=== PATIENT | male | born 1960 | race Caucasian/White ===

== ENCOUNTER → 2019-11-27 07:56 | Outpatient (BNVA) | payer MEDICARE, MEDICAID, SELFPAY | PROVIDERS: Family Provider Family Medicine; PCP Family Medicine; Visit Provider Nurse Practitioner Psychiatric/Mental Health | DX: F34.1 Dysthymic disorder (principal); F43.12 Post-traumatic stress disorder, chronic; F70 Mild intellectual disabilities; F17.220 Nicotine dependence, chewing tobacco, uncomplicated; F33.41 Major depressive disorder, recurrent, in partial remission; F41.8 Other specified anxiety disorders | CPT/HCPCS: 99213 ==

== ENCOUNTER → 2020-02-26 07:48 | Outpatient (BNVA) | payer MEDICARE, MEDICAID, SELFPAY | PROVIDERS: Family Provider Family Medicine; PCP Family Medicine; Visit Provider Nurse Practitioner Psychiatric/Mental Health | DX: F34.1 Dysthymic disorder (principal); F43.12 Post-traumatic stress disorder, chronic; F70 Mild intellectual disabilities; F17.220 Nicotine dependence, chewing tobacco, uncomplicated | CPT/HCPCS: 99213 ==

== ENCOUNTER → 2020-05-27 08:01 | Outpatient (BNVA) | payer MEDICARE, MEDICAID, SELFPAY | PROVIDERS: Family Provider Family Medicine; PCP Family Medicine; Visit Provider Nurse Practitioner Psychiatric/Mental Health | DX: F34.1 Dysthymic disorder (principal); F43.12 Post-traumatic stress disorder, chronic; F70 Mild intellectual disabilities; F17.220 Nicotine dependence, chewing tobacco, uncomplicated | CPT/HCPCS: 99213 ==

== ENCOUNTER → 2020-06-03 10:00 | Outpatient (BNVA) | payer MEDICARE, MEDICAID, SELFPAY | PROVIDERS: Family Provider Family Medicine; PCP Family Medicine; Visit Provider Nurse Practitioner Family | DX: I10 Essential (primary) hypertension (principal); E11.65 Type 2 diabetes mellitus with hyperglycemia; E55.9 Vitamin D deficiency, unspecified; Z13.6 Encounter for screening for cardiovascular disorders; Z11.1 Encounter for screening for respiratory tuberculosis | CPT/HCPCS: 80053; 80061; 81003; 82306; 83036; 84443; 85025 ==

== ENCOUNTER 2020-06-10 12:13 | Outpatient (CLI) | payer MEDICARE, MEDICAID, SELFPAY ==
--- NOTE | 2020-06-10 12:29 | USCV_ITS ---
Kit Schuler Age: 60 Gender: M : 1960 Exam Date: 06/10/2020 12:48 Ordering Phys: Matias Prabhakar MD ([email or web address]) Technologist: Marry Perez [place] [facility] [place]: [place] pain BP: / HR: 54 Rhythm: Sinus Technical Quality: Adequate MEASUREMENTS (Male / Female) Normal Values 2D ECHO LV Diastolic Diameter PLAX 4.9 cm 4.2 - 5.9 / 3.9 - 5.3 cm LV Systolic Diameter PLAX 3.0 cm IVS Diastolic Thickness 1.3 cm 0.6 - 1.0 / 0.6 - 0.9 cm IVS Systolic Thickness 2.4 cm LVPW Diastolic Thickness 1.5 cm 0.6 - 1.0 / 0.6 - 0.9 cm LVPW Systolic Thickness 1.9 cm LVOT Diameter 2.1 cm LV Ejection Fraction 2D Teich 69.8 % LV Ejection Fraction MOD 2C 59.2 % LV Ejection Fraction 2C AL 62.0 % LA Diameter 4.5 cm LA Width 3.2 cm LA Height 4.2 cm RA Width 2.7 cm RA Height 3.9 cm Aorta at Sinotubular Diameter 3.8 cm M-MODE LV Diastolic Diameter MM 5.0 cm 4.2 - 5.9 / 3.9 - 5.3 cm LV Systolic Diameter MM 3.3 cm LV Ejection Fraction MM Teich 62.0 % IVS Diastolic Thickness MM 1.7 cm 0.6 - 1.0 / 0.6 - 0.9 cm IVS Systolic Thickness MM 2.2 cm LVPW Diastolic Thickness MM 1.3 cm 0.6 - 1.0 / 0.6 - 0.9 cm LVPW Systolic Thickness MM 2.1 cm RV Diastolic Diameter MM 1.7 cm Aortic Annulus Diameter 3.8 cm LA Ao Ratio MM 1.2 MV E Point Septal Separation 0.5 cm DOPPLER AV Peak Velocity 123.7 cm/s LVOT Peak Velocity 62.3 cm/s AV Area Cont Eq vti 1.8 cm squared AV Area Cont Eq pk 1.7 cm squared MV Area PHT 2.4 cm squared Mitral E to A Ratio 1.1 MV E' Velocity 30.0 cm/s Mitral E to MV E' Ratio 6.5 Mitral E to LV E' Lateral Ratio 5.4 Mitral E to LV E' Septal Ratio 8.4 TR Peak Velocity 141.8 cm/s TR Peak Gradient 8.0 mmHg TR Mean Velocity 104.8 cm/s TR Mean Gradient 4.7 mmHg TR Velocity Time Integral 38.0 cm TV Peak E Velocity 66.0 cm/s Right Atrial Pressure 3.0 mmHg Pulmonary Artery Systolic Pressu 11.0 mmHg PV Peak Velocity 59.0 cm/s RV Acceleration Time 0.2 s RV Ejection Time 0.3 s RV AcT/ET 0.5 FINDINGS Left Ventricle Normal left ventricular size and systolic function, EF 59 %. Mild left ventricular hypertrophy. Slightly dyskinetic basal inferior wall segment Right Ventricle The right ventricle is normal in size and function. Right Atrium The right atrium is normal in size. Left Atrium Mildly dilated Mitral Valve Structurally normal mitral valve without significant stenosis or prolapse. There is no mitral regurgitation. Aortic Valve Thickened aortic valve. Tricuspid Valve Structurally normal tricuspid valve without significant stenosis or regurgitation. Pulmonary artery systolic pressure is normal. Pulmonic Valve Structurally normal pulmonic valve without significant stenosis. There is no pulmonic regurgitation. Pericardium No pericardial effusion. Aorta Normal aortic annulus size. CONCLUSIONS Normal left ventricular size and systolic function, EF 59 %. Mild left ventricular hypertrophy. Slightly dyskinetic basal inferior wall segment. Mild left atrial enlargement. Thickened aortic valve. There is no pericardial effusion. There are no intracardiac masses. No previous study is available for comparison. Dr Matias Prabhakar MD FAC (Electronically Signed) Final Date: 11 June 2020 00:10 S
== END 2020-06-10 12:14 | disposition home or self-care (01) ==
PROVIDERS: PCP Nurse Practitioner Family; Visit Provider Internal Medicine Cardiovascular Disease
DX: R07.89 Other chest pain (principal); I50.32 Chronic diastolic (congestive) heart failure; I35.8 Other nonrheumatic aortic valve disorders
CPT/HCPCS: 80048; 83880; 93306

== ENCOUNTER → 2020-07-20 09:59 | Outpatient (BNVA) | payer MEDICARE, MEDICAID, SELFPAY | PROVIDERS: PCP Nurse Practitioner Family; Visit Provider Nurse Practitioner Family | DX: E87.6 Hypokalemia (principal) | CPT/HCPCS: 80053 ==

== ENCOUNTER → 2020-08-10 10:13 | Outpatient (BNVA) | payer MEDICARE, MEDICAID, SELFPAY | PROVIDERS: PCP Nurse Practitioner Family; Visit Provider Nurse Practitioner Family | DX: M17.12 Unilateral primary osteoarthritis, left knee (principal) | CPT/HCPCS: 73562 ==

== ENCOUNTER → 2020-08-26 09:58 | Outpatient (BNVA) | payer MEDICARE, MEDICAID, SELFPAY | PROVIDERS: PCP Nurse Practitioner Family; Visit Provider Nurse Practitioner Psychiatric/Mental Health | DX: F34.1 Dysthymic disorder (principal); F43.12 Post-traumatic stress disorder, chronic; F70 Mild intellectual disabilities; F17.220 Nicotine dependence, chewing tobacco, uncomplicated | CPT/HCPCS: 99214 ==

== ENCOUNTER → 2020-09-30 08:20 | Outpatient (BNVA) | payer MEDICARE, MEDICAID, SELFPAY | PROVIDERS: PCP Nurse Practitioner Family; Visit Provider Nurse Practitioner Family | DX: E87.6 Hypokalemia (principal) | CPT/HCPCS: 80053 ==

== ENCOUNTER → 2020-11-02 10:43 | Outpatient (BNVA) | payer MEDICARE, MEDICAID, SELFPAY | PROVIDERS: PCP Nurse Practitioner Family; Visit Provider Nurse Practitioner Family | DX: S46.911A Strain of unspecified muscle, fascia and tendon at shoulder and upper arm level, right arm, initial encounter (principal); X58.XXXA Exposure to other specified factors, initial encounter; M19.011 Primary osteoarthritis, right shoulder | CPT/HCPCS: 73030 ==

== ENCOUNTER 2020-11-15 06:00 | Outpatient (RCR) | payer MEDICARE, MEDICAID, SELFPAY | END 2020-12-02 23:59 | disposition home or self-care (01) | LOC: WPT 06:00 | PROVIDERS: PCP Nurse Practitioner Family; Referring Provider Nurse Practitioner Family; Visit Provider Nurse Practitioner Family | DX: S46.911D Strain of unspecified muscle, fascia and tendon at shoulder and upper arm level, right arm, subsequent encounter (principal); W19.XXXD Unspecified fall, subsequent encounter; M25.569 Pain in unspecified knee; G89.29 Other chronic pain | CPT/HCPCS: 97110; 97112; 97163 ==

== ENCOUNTER → 2020-11-24 10:38 | Outpatient (BNVA) | payer MEDICARE, MEDICAID, SELFPAY | PROVIDERS: PCP Nurse Practitioner Family; Visit Provider Nurse Practitioner Family | DX: E87.6 Hypokalemia (principal); Z79.899 Other long term (current) drug therapy; E11.65 Type 2 diabetes mellitus with hyperglycemia | CPT/HCPCS: 80053 ==

== ENCOUNTER → 2020-12-02 08:47 | Outpatient (BNVA) | payer MEDICARE, MEDICAID, SELFPAY | PROVIDERS: PCP Nurse Practitioner Family; Visit Provider Nurse Practitioner Psychiatric/Mental Health | DX: F34.1 Dysthymic disorder (principal); F43.12 Post-traumatic stress disorder, chronic; F70 Mild intellectual disabilities; F17.220 Nicotine dependence, chewing tobacco, uncomplicated | CPT/HCPCS: 99214 ==

== ENCOUNTER 2020-12-03 06:00 | Outpatient (RCR) | payer MEDICARE, MEDICAID, SELFPAY | END 2021-01-02 23:59 | disposition home or self-care (01) | LOC: WPT 06:00 | PROVIDERS: PCP Nurse Practitioner Family; Referring Provider Nurse Practitioner Family; Visit Provider Nurse Practitioner Family | DX: S46.911D Strain of unspecified muscle, fascia and tendon at shoulder and upper arm level, right arm, subsequent encounter (principal); W19.XXXA Unspecified fall, initial encounter | CPT/HCPCS: 97110; 97112; 97164 ==

== ENCOUNTER → 2020-12-21 10:38 | Outpatient (BNVA) | payer MEDICARE, MEDICAID, SELFPAY | PROVIDERS: PCP Nurse Practitioner Family; Visit Provider Nurse Practitioner Family | DX: M16.0 Bilateral primary osteoarthritis of hip (principal); M54.5 Low back pain | CPT/HCPCS: 73523 ==

== ENCOUNTER 2021-01-03 06:00 | Outpatient (RCR) | payer MEDICARE, MEDICAID, SELFPAY | END 2021-02-01 23:59 | disposition home or self-care (01) | LOC: WPT 06:00 | PROVIDERS: PCP Nurse Practitioner Family; Referring Provider Nurse Practitioner Family; Visit Provider Nurse Practitioner Family | DX: S46.911D Strain of unspecified muscle, fascia and tendon at shoulder and upper arm level, right arm, subsequent encounter (principal); W19.XXXD Unspecified fall, subsequent encounter; M25.562 Pain in left knee; G89.29 Other chronic pain | CPT/HCPCS: 97110 ==

== ENCOUNTER → 2021-05-25 11:07 | Outpatient (BNVA) | payer MEDICARE, MEDICAID, SELFPAY | PROVIDERS: PCP Nurse Practitioner Family; Visit Provider Nurse Practitioner Family | DX: Z00.00 Encounter for general adult medical examination without abnormal findings (principal); I10 Essential (primary) hypertension; Z12.5 Encounter for screening for malignant neoplasm of prostate; Z13.6 Encounter for screening for cardiovascular disorders; E55.9 Vitamin D deficiency, unspecified; E11.65 Type 2 diabetes mellitus with hyperglycemia | CPT/HCPCS: 80053; 80061; 81003; 82306; 83036; 84443; 85025; G0103 ==

== ENCOUNTER → 2021-05-26 08:13 | Outpatient (BNVA) | payer MEDICARE, MEDICAID, SELFPAY | PROVIDERS: PCP Nurse Practitioner Family; Visit Provider Nurse Practitioner Psychiatric/Mental Health | DX: F34.1 Dysthymic disorder (principal); F43.12 Post-traumatic stress disorder, chronic; F70 Mild intellectual disabilities; F17.220 Nicotine dependence, chewing tobacco, uncomplicated | CPT/HCPCS: 99214 ==

== ENCOUNTER → 2021-09-01 08:19 | Outpatient (BNVA) | payer MEDICARE, MEDICAID, SELFPAY | PROVIDERS: PCP Nurse Practitioner Family; Visit Provider Nurse Practitioner Psychiatric/Mental Health | DX: F34.1 Dysthymic disorder (principal); F43.12 Post-traumatic stress disorder, chronic; F70 Mild intellectual disabilities; F17.220 Nicotine dependence, chewing tobacco, uncomplicated | CPT/HCPCS: 99214 ==

== ENCOUNTER → 2021-12-01 08:28 | Outpatient (BNVA) | payer MEDICARE, MEDICAID, SELFPAY | PROVIDERS: PCP Nurse Practitioner Family; Visit Provider Nurse Practitioner Psychiatric/Mental Health | DX: F34.1 Dysthymic disorder (principal); F43.12 Post-traumatic stress disorder, chronic; F70 Mild intellectual disabilities; F17.220 Nicotine dependence, chewing tobacco, uncomplicated | CPT/HCPCS: 99214 ==

== ENCOUNTER → 2021-12-14 11:25 | Outpatient (BNVA) | payer MEDICARE, MEDICAID, SELFPAY | PROVIDERS: PCP Nurse Practitioner Family; Visit Provider Nurse Practitioner | DX: Z12.5 Encounter for screening for malignant neoplasm of prostate (principal); M25.569 Pain in unspecified knee; I10 Essential (primary) hypertension; Z79.899 Other long term (current) drug therapy | CPT/HCPCS: 80053; 81000; 83036; 85025; G0103 ==

== ENCOUNTER → 2022-08-08 11:31 | Outpatient (BNVA) | payer MEDICARE, MEDICAID, OTHER, SELFPAY | PROVIDERS: PCP Family Medicine; Visit Provider Family Medicine | DX: Z79.899 Other long term (current) drug therapy (principal); E11.40 Type 2 diabetes mellitus with diabetic neuropathy, unspecified; R07.89 Other chest pain | CPT/HCPCS: 80053; 80061; 83036; 84443; 85025 ==

== ENCOUNTER → 2022-09-19 12:06 | Outpatient (BNVA) | payer MEDICARE, MEDICAID, SELFPAY | PROVIDERS: PCP Family Medicine; Visit Provider Family Medicine | DX: M25.562 Pain in left knee (principal); M17.12 Unilateral primary osteoarthritis, left knee | CPT/HCPCS: 73562 ==

== ENCOUNTER → 2022-09-27 09:39 | Outpatient (BNVA) | payer MEDICARE, MEDICAID, SELFPAY | PROVIDERS: PCP Family Medicine; Referring Provider Nurse Practitioner; Visit Provider Podiatrist Foot & Ankle Surgery | DX: E11.40 Type 2 diabetes mellitus with diabetic neuropathy, unspecified (principal); L60.1 Onycholysis; L60.3 Nail dystrophy; M21.41 Flat foot [pes planus] (acquired), right foot; M21.42 Flat foot [pes planus] (acquired), left foot; M20.41 Other hammer toe(s) (acquired), right foot; M20.42 Other hammer toe(s) (acquired), left foot; M20.31 Hallux varus (acquired), right foot; M20.32 Hallux varus (acquired), left foot; L97.522 Non-pressure chronic ulcer of other part of left foot with fat layer exposed; L97.512 Non-pressure chronic ulcer of other part of right foot with fat layer exposed; E11.621 Type 2 diabetes mellitus with foot ulcer | CPT/HCPCS: 11721; 99204 ==

== ENCOUNTER → 2022-10-22 08:51 | Outpatient (BNVA) | payer MEDICARE, MEDICAID, SELFPAY | PROVIDERS: PCP Family Medicine; Visit Provider Podiatrist Foot & Ankle Surgery | DX: E11.40 Type 2 diabetes mellitus with diabetic neuropathy, unspecified (principal); L60.3 Nail dystrophy; M21.41 Flat foot [pes planus] (acquired), right foot; M21.42 Flat foot [pes planus] (acquired), left foot; M20.41 Other hammer toe(s) (acquired), right foot; M20.42 Other hammer toe(s) (acquired), left foot; M20.31 Hallux varus (acquired), right foot; M20.32 Hallux varus (acquired), left foot; L97.522 Non-pressure chronic ulcer of other part of left foot with fat layer exposed; L97.512 Non-pressure chronic ulcer of other part of right foot with fat layer exposed; E11.621 Type 2 diabetes mellitus with foot ulcer; Z79.4 Long term (current) use of insulin | CPT/HCPCS: 73560; 73565; 99214 ==

== ENCOUNTER 2022-10-22 15:01 | Outpatient (CLI) | payer MEDICARE, MEDICAID, SELFPAY | END 2022-10-22 15:02 | disposition home or self-care (01) | LOC: SPT 15:02 | PROVIDERS: PCP Family Medicine; Visit Provider Specialist | DX: Z46.89 Encounter for fitting and adjustment of other specified devices (principal); M17.12 Unilateral primary osteoarthritis, left knee | CPT/HCPCS: 97760; 99204; L1812 ==

== ENCOUNTER 2022-10-30 06:00 | Outpatient (RCR) | payer MEDICARE, MEDICAID, SELFPAY | END 2022-11-02 23:59 | disposition home or self-care (01) | LOC: WPT 06:00 | PROVIDERS: Visit Provider Specialist | DX: M25.562 Pain in left knee (principal) | CPT/HCPCS: 97110; 97162 ==

== ENCOUNTER 2022-11-03 06:00 | Outpatient (RCR) | payer MEDICARE, MEDICAID, SELFPAY | END 2022-12-02 23:59 | disposition home or self-care (01) | LOC: WPT 06:00 | PROVIDERS: PCP Nurse Practitioner; Visit Provider Specialist | DX: M13.862 Other specified arthritis, left knee (principal) | CPT/HCPCS: 97110; 97112; 97530 ==

== ENCOUNTER → 2022-11-14 12:40 | Outpatient (BNVA) | payer MEDICARE, MEDICAID, SELFPAY | PROVIDERS: Visit Provider Podiatrist Foot & Ankle Surgery | DX: E11.40 Type 2 diabetes mellitus with diabetic neuropathy, unspecified (principal); M21.41 Flat foot [pes planus] (acquired), right foot; L60.3 Nail dystrophy; M21.42 Flat foot [pes planus] (acquired), left foot; M20.41 Other hammer toe(s) (acquired), right foot; M20.42 Other hammer toe(s) (acquired), left foot; M20.31 Hallux varus (acquired), right foot; M20.32 Hallux varus (acquired), left foot; L97.522 Non-pressure chronic ulcer of other part of left foot with fat layer exposed; L97.512 Non-pressure chronic ulcer of other part of right foot with fat layer exposed; E11.621 Type 2 diabetes mellitus with foot ulcer; Z79.4 Long term (current) use of insulin | CPT/HCPCS: 99214 ==

== ENCOUNTER → 2022-11-26 09:13 | Outpatient (BNVA) | payer MEDICARE, MEDICAID, SELFPAY | PROVIDERS: PCP Nurse Practitioner; Visit Provider Specialist | DX: M17.12 Unilateral primary osteoarthritis, left knee (principal) | CPT/HCPCS: 20610; 99213; J7318 ==

== ENCOUNTER → 2022-12-06 10:58 | Outpatient (BNVA) | payer MEDICARE, MEDICAID, SELFPAY | PROVIDERS: PCP Nurse Practitioner; Visit Provider Podiatrist Foot & Ankle Surgery | DX: E11.621 Type 2 diabetes mellitus with foot ulcer (principal); Z79.4 Long term (current) use of insulin; L97.512 Non-pressure chronic ulcer of other part of right foot with fat layer exposed; L97.522 Non-pressure chronic ulcer of other part of left foot with fat layer exposed; Z51.89 Encounter for other specified aftercare; E11.40 Type 2 diabetes mellitus with diabetic neuropathy, unspecified; L60.3 Nail dystrophy; M21.41 Flat foot [pes planus] (acquired), right foot; M21.42 Flat foot [pes planus] (acquired), left foot; M20.41 Other hammer toe(s) (acquired), right foot; M20.42 Other hammer toe(s) (acquired), left foot; M20.31 Hallux varus (acquired), right foot; M20.32 Hallux varus (acquired), left foot | CPT/HCPCS: 99213 ==

== ENCOUNTER → 2022-12-10 08:08 | Outpatient (BNVA) | payer MEDICARE, MEDICAID, SELFPAY | PROVIDERS: PCP Nurse Practitioner; Visit Provider Nurse Practitioner Family | DX: I96 Gangrene, not elsewhere classified (principal); E11.621 Type 2 diabetes mellitus with foot ulcer; L89.892 Pressure ulcer of other site, stage 2 | CPT/HCPCS: 11042; 97597; 99213 ==

== ENCOUNTER → 2022-12-13 09:23 | Outpatient (BNVA) | payer MEDICARE, MEDICAID, SELFPAY | PROVIDERS: PCP Nurse Practitioner; Visit Provider Nurse Practitioner Family | DX: E11.621 Type 2 diabetes mellitus with foot ulcer (principal); L97.509 Non-pressure chronic ulcer of other part of unspecified foot with unspecified severity; M19.071 Primary osteoarthritis, right ankle and foot; Z89.421 Acquired absence of other right toe(s) | CPT/HCPCS: 73630 ==

== ENCOUNTER → 2022-12-18 08:32 | Outpatient (BNVA) | payer MEDICARE, MEDICAID, SELFPAY | PROVIDERS: PCP Nurse Practitioner; Visit Provider Nurse Practitioner Family | DX: I96 Gangrene, not elsewhere classified (principal); E11.621 Type 2 diabetes mellitus with foot ulcer; L89.892 Pressure ulcer of other site, stage 2 | CPT/HCPCS: 11042; 97597 ==

== ENCOUNTER → 2022-12-25 09:00 | Outpatient (BNVA) | payer MEDICARE, MEDICAID, SELFPAY | PROVIDERS: PCP Nurse Practitioner; Visit Provider Nurse Practitioner Family | DX: E11.621 Type 2 diabetes mellitus with foot ulcer (principal); I96 Gangrene, not elsewhere classified; L97.522 Non-pressure chronic ulcer of other part of left foot with fat layer exposed | CPT/HCPCS: 11042; 97597 ==

== ENCOUNTER → 2023-01-01 08:56 | Outpatient (BNVA) | payer MEDICARE, MEDICAID, SELFPAY | PROVIDERS: PCP Nurse Practitioner; Visit Provider Nurse Practitioner Family | DX: I96 Gangrene, not elsewhere classified (principal); E11.621 Type 2 diabetes mellitus with foot ulcer; L89.892 Pressure ulcer of other site, stage 2 | CPT/HCPCS: 11042; 97597 ==

== ENCOUNTER → 2023-01-03 11:51 | Outpatient (BNVA) | payer MEDICARE, MEDICAID, SELFPAY | PROVIDERS: PCP Nurse Practitioner; Visit Provider Nurse Practitioner | DX: R30.0 Dysuria (principal); R39.9 Unspecified symptoms and signs involving the genitourinary system | CPT/HCPCS: 81000 ==

== ENCOUNTER → 2023-01-08 13:27 | Outpatient (BNVA) | payer MEDICARE, MEDICAID, SELFPAY | PROVIDERS: PCP Nurse Practitioner; Visit Provider Nurse Practitioner Family | DX: I96 Gangrene, not elsewhere classified (principal); E11.621 Type 2 diabetes mellitus with foot ulcer; L89.892 Pressure ulcer of other site, stage 2 | CPT/HCPCS: 97597 ==

== ENCOUNTER → 2023-01-22 09:08 | Outpatient (BNVA) | payer MEDICARE, MEDICAID, SELFPAY | PROVIDERS: PCP Nurse Practitioner; Visit Provider Nurse Practitioner Family | DX: E11.52 Type 2 diabetes mellitus with diabetic peripheral angiopathy with gangrene (principal); L89.892 Pressure ulcer of other site, stage 2 | CPT/HCPCS: 97597; A6210; A6250 ==

== ENCOUNTER → 2023-01-29 09:00 | Outpatient (BNVA) | payer MEDICARE, MEDICAID, SELFPAY | PROVIDERS: PCP Nurse Practitioner; Visit Provider Nurse Practitioner Family | DX: E11.52 Type 2 diabetes mellitus with diabetic peripheral angiopathy with gangrene (principal); L89.892 Pressure ulcer of other site, stage 2 | CPT/HCPCS: 97597; A6210 ==

== ENCOUNTER → 2023-02-12 09:10 | Outpatient (BNVA) | payer MEDICARE, MEDICAID, SELFPAY | PROVIDERS: PCP Nurse Practitioner; Visit Provider Nurse Practitioner Family | DX: E11.52 Type 2 diabetes mellitus with diabetic peripheral angiopathy with gangrene (principal); L89.892 Pressure ulcer of other site, stage 2; Z09 Encounter for follow-up examination after completed treatment for conditions other than malignant neoplasm | CPT/HCPCS: 97597; A6210 ==

== ENCOUNTER → 2023-02-21 09:14 | Outpatient (BNVA) | payer MEDICARE, MEDICAID, SELFPAY | PROVIDERS: PCP Nurse Practitioner; Visit Provider Nurse Practitioner Family | DX: E11.52 Type 2 diabetes mellitus with diabetic peripheral angiopathy with gangrene (principal); L89.892 Pressure ulcer of other site, stage 2; L97.521 Non-pressure chronic ulcer of other part of left foot limited to breakdown of skin | CPT/HCPCS: 97597; A6210; A6250 ==

== ENCOUNTER → 2023-02-25 09:48 | Outpatient (BNVA) | payer MEDICARE, MEDICAID, OTHER, SELFPAY | PROVIDERS: PCP Nurse Practitioner; Visit Provider Nurse Practitioner | DX: I10 Essential (primary) hypertension (principal); E11.40 Type 2 diabetes mellitus with diabetic neuropathy, unspecified | CPT/HCPCS: 80053; 80061; 81000; 83036; 84443 ==

== ENCOUNTER → 2023-03-07 09:17 | Outpatient (BNVA) | payer MEDICARE, MEDICAID, OTHER, SELFPAY | PROVIDERS: PCP Nurse Practitioner; Visit Provider Nurse Practitioner Family | DX: E11.52 Type 2 diabetes mellitus with diabetic peripheral angiopathy with gangrene (principal); L89.892 Pressure ulcer of other site, stage 2; L97.521 Non-pressure chronic ulcer of other part of left foot limited to breakdown of skin | CPT/HCPCS: 97597; A6210 ==

== ENCOUNTER → 2023-03-14 14:14 | Outpatient (BNVA) | payer MEDICARE, MEDICAID, OTHER, SELFPAY | PROVIDERS: PCP Nurse Practitioner; Visit Provider Thoracic Surgery (Cardiothoracic Vascular Surgery) | DX: E11.621 Type 2 diabetes mellitus with foot ulcer (principal); L89.892 Pressure ulcer of other site, stage 2 | CPT/HCPCS: 97597; A6210 ==

== ENCOUNTER → 2023-03-21 09:29 | Outpatient (BNVA) | payer MEDICARE, MEDICAID, OTHER, SELFPAY | PROVIDERS: PCP Nurse Practitioner; Visit Provider Nurse Practitioner Family | DX: E11.52 Type 2 diabetes mellitus with diabetic peripheral angiopathy with gangrene (principal); L89.892 Pressure ulcer of other site, stage 2; Z09 Encounter for follow-up examination after completed treatment for conditions other than malignant neoplasm | CPT/HCPCS: 97597; A6210 ==

== ENCOUNTER → 2023-03-28 10:03 | Outpatient (BNVA) | payer MEDICARE, MEDICAID, OTHER, SELFPAY | PROVIDERS: PCP Nurse Practitioner; Visit Provider Nurse Practitioner Family | DX: E11.52 Type 2 diabetes mellitus with diabetic peripheral angiopathy with gangrene (principal); L89.892 Pressure ulcer of other site, stage 2 | CPT/HCPCS: 97597; A6210 ==

== ENCOUNTER → 2023-04-04 09:11 | Outpatient (BNVA) | payer MEDICARE, MEDICAID, OTHER, SELFPAY | PROVIDERS: PCP Nurse Practitioner; Visit Provider Nurse Practitioner Family | DX: E11.52 Type 2 diabetes mellitus with diabetic peripheral angiopathy with gangrene (principal); L89.892 Pressure ulcer of other site, stage 2; Z09 Encounter for follow-up examination after completed treatment for conditions other than malignant neoplasm | CPT/HCPCS: 97597; A6210 ==

== ENCOUNTER → 2023-04-18 09:08 | Outpatient (BNVA) | payer MEDICARE, MEDICAID, OTHER, SELFPAY | PROVIDERS: PCP Nurse Practitioner; Visit Provider Nurse Practitioner Family | DX: E11.52 Type 2 diabetes mellitus with diabetic peripheral angiopathy with gangrene (principal); L89.892 Pressure ulcer of other site, stage 2 | CPT/HCPCS: 15275; 97597; A6206; A6210; A6219; A6250; Q4205 ==

== ENCOUNTER → 2023-04-25 09:03 | Outpatient (BNVA) | payer MEDICARE, MEDICAID, OTHER, SELFPAY | PROVIDERS: PCP Nurse Practitioner; Visit Provider Nurse Practitioner Family | DX: E11.52 Type 2 diabetes mellitus with diabetic peripheral angiopathy with gangrene (principal); L89.892 Pressure ulcer of other site, stage 2 | CPT/HCPCS: 15275; 97597; A6206; A6250; Q4205 ==

== ENCOUNTER → 2023-05-02 08:53 | Outpatient (BNVA) | payer MEDICARE, MEDICAID, SELFPAY | PROVIDERS: PCP Nurse Practitioner; Visit Provider Nurse Practitioner Family | DX: E11.52 Type 2 diabetes mellitus with diabetic peripheral angiopathy with gangrene (principal); L89.892 Pressure ulcer of other site, stage 2 | CPT/HCPCS: 97597 ==

== ENCOUNTER → 2023-05-09 09:02 | Outpatient (BNVA) | payer MEDICARE, MEDICAID, SELFPAY | PROVIDERS: PCP Nurse Practitioner; Visit Provider Nurse Practitioner Family | DX: E11.52 Type 2 diabetes mellitus with diabetic peripheral angiopathy with gangrene (principal); L97.521 Non-pressure chronic ulcer of other part of left foot limited to breakdown of skin; L89.891 Pressure ulcer of other site, stage 1 | CPT/HCPCS: 97597 ==

== ENCOUNTER → 2023-05-16 10:11 | Outpatient (BNVA) | payer MEDICARE, MEDICAID, SELFPAY | PROVIDERS: PCP Nurse Practitioner; Visit Provider Nurse Practitioner Family | DX: E11.52 Type 2 diabetes mellitus with diabetic peripheral angiopathy with gangrene (principal); L97.521 Non-pressure chronic ulcer of other part of left foot limited to breakdown of skin; L89.892 Pressure ulcer of other site, stage 2 | CPT/HCPCS: 15275; 97597; A6206; A6250; Q4205 ==

== ENCOUNTER → 2023-05-22 10:37 | Outpatient (BNVA) | payer MEDICARE, MEDICAID, SELFPAY | PROVIDERS: PCP Nurse Practitioner Family; Visit Provider Nurse Practitioner Family | DX: E55.9 Vitamin D deficiency, unspecified (principal); M17.12 Unilateral primary osteoarthritis, left knee; E11.40 Type 2 diabetes mellitus with diabetic neuropathy, unspecified; R07.89 Other chest pain; Z79.899 Other long term (current) drug therapy; Z12.5 Encounter for screening for malignant neoplasm of prostate | CPT/HCPCS: 80053; 80061; 81003; 82306; 83036; 84443; 85007; 85027; G0103 ==

== ENCOUNTER → 2023-05-23 09:10 | Outpatient (BNVA) | payer MEDICARE, MEDICAID, SELFPAY | PROVIDERS: PCP Nurse Practitioner Family; Visit Provider Nurse Practitioner Family | DX: E11.621 Type 2 diabetes mellitus with foot ulcer (principal); L97.511 Non-pressure chronic ulcer of other part of right foot limited to breakdown of skin; L97.521 Non-pressure chronic ulcer of other part of left foot limited to breakdown of skin; Z09 Encounter for follow-up examination after completed treatment for conditions other than malignant neoplasm | CPT/HCPCS: 97597; A6210 ==

== ENCOUNTER → 2023-05-30 08:58 | Outpatient (BNVA) | payer MEDICARE, MEDICAID, SELFPAY | PROVIDERS: PCP Nurse Practitioner Family; Visit Provider Nurse Practitioner Family | DX: E11.52 Type 2 diabetes mellitus with diabetic peripheral angiopathy with gangrene (principal); E11.621 Type 2 diabetes mellitus with foot ulcer; L97.511 Non-pressure chronic ulcer of other part of right foot limited to breakdown of skin; L89.892 Pressure ulcer of other site, stage 2 | CPT/HCPCS: 15275; 97597; A6250; Q4205 ==

== ENCOUNTER → 2023-06-11 09:25 | Outpatient (BNVA) | payer MEDICARE, MEDICAID, SELFPAY | PROVIDERS: PCP Nurse Practitioner Family; Visit Provider Nurse Practitioner Family | DX: E11.52 Type 2 diabetes mellitus with diabetic peripheral angiopathy with gangrene (principal); E11.621 Type 2 diabetes mellitus with foot ulcer; L97.511 Non-pressure chronic ulcer of other part of right foot limited to breakdown of skin; L97.521 Non-pressure chronic ulcer of other part of left foot limited to breakdown of skin | CPT/HCPCS: 15275; 97597; A6206; A6210; A6250; Q4205 ==

== ENCOUNTER → 2023-06-18 09:58 | Outpatient (BNVA) | payer MEDICARE, MEDICAID, SELFPAY | PROVIDERS: PCP Nurse Practitioner Family; Visit Provider Nurse Practitioner Family | DX: E11.52 Type 2 diabetes mellitus with diabetic peripheral angiopathy with gangrene (principal); E11.621 Type 2 diabetes mellitus with foot ulcer; L97.511 Non-pressure chronic ulcer of other part of right foot limited to breakdown of skin; L97.521 Non-pressure chronic ulcer of other part of left foot limited to breakdown of skin | CPT/HCPCS: 15275; 97597; A6206; C5275; Q4205 ==

== ENCOUNTER → 2023-06-25 10:42 | Outpatient (BNVA) | payer MEDICARE, MEDICAID, SELFPAY | PROVIDERS: PCP Nurse Practitioner Family; Visit Provider Thoracic Surgery (Cardiothoracic Vascular Surgery) | DX: E11.52 Type 2 diabetes mellitus with diabetic peripheral angiopathy with gangrene (principal); E11.621 Type 2 diabetes mellitus with foot ulcer; L97.511 Non-pressure chronic ulcer of other part of right foot limited to breakdown of skin; L97.521 Non-pressure chronic ulcer of other part of left foot limited to breakdown of skin | CPT/HCPCS: 15275; 97597; A6206; A6250; Q4205 ==

== ENCOUNTER → 2023-07-02 09:58 | Outpatient (BNVA) | payer MEDICARE, MEDICAID, SELFPAY | PROVIDERS: PCP Nurse Practitioner Family; Visit Provider Nurse Practitioner Family | DX: E11.52 Type 2 diabetes mellitus with diabetic peripheral angiopathy with gangrene (principal); E11.621 Type 2 diabetes mellitus with foot ulcer; L89.892 Pressure ulcer of other site, stage 2 | CPT/HCPCS: 11042; 15275; A6206; A6250; Q4205 ==

== ENCOUNTER → 2023-07-09 08:52 | Outpatient (BNVA) | payer MEDICARE, MEDICAID, SELFPAY | PROVIDERS: PCP Nurse Practitioner Family; Visit Provider Nurse Practitioner Family | DX: E11.52 Type 2 diabetes mellitus with diabetic peripheral angiopathy with gangrene (principal); E11.621 Type 2 diabetes mellitus with foot ulcer; L97.511 Non-pressure chronic ulcer of other part of right foot limited to breakdown of skin; L97.521 Non-pressure chronic ulcer of other part of left foot limited to breakdown of skin | CPT/HCPCS: 15275; 97597; A6206; A6250; Q4205 ==

== ENCOUNTER → 2023-07-23 09:49 | Outpatient (BNVA) | payer MEDICARE, MEDICAID, SELFPAY | PROVIDERS: PCP Nurse Practitioner Family; Visit Provider Thoracic Surgery (Cardiothoracic Vascular Surgery) | DX: E11.52 Type 2 diabetes mellitus with diabetic peripheral angiopathy with gangrene (principal); E11.621 Type 2 diabetes mellitus with foot ulcer; L89.892 Pressure ulcer of other site, stage 2 | CPT/HCPCS: 97597 ==

== ENCOUNTER → 2023-07-30 10:44 | Outpatient (BNVA) | payer MEDICARE, MEDICAID, SELFPAY | PROVIDERS: PCP Nurse Practitioner Family; Visit Provider Nurse Practitioner Family | DX: E11.52 Type 2 diabetes mellitus with diabetic peripheral angiopathy with gangrene (principal); E11.621 Type 2 diabetes mellitus with foot ulcer; L97.511 Non-pressure chronic ulcer of other part of right foot limited to breakdown of skin; L97.521 Non-pressure chronic ulcer of other part of left foot limited to breakdown of skin | CPT/HCPCS: 97597; 99212 ==

== ENCOUNTER → 2023-08-06 15:00 | Outpatient (BNVA) | payer MEDICARE, MEDICAID, SELFPAY | PROVIDERS: PCP Nurse Practitioner Family; Visit Provider Nurse Practitioner Family | DX: E11.621 Type 2 diabetes mellitus with foot ulcer (principal); L97.522 Non-pressure chronic ulcer of other part of left foot with fat layer exposed; Z89.421 Acquired absence of other right toe(s); M84.477A Pathological fracture, right toe(s), initial encounter for fracture | CPT/HCPCS: 11042; 73630; 84550; 86140; 87070; 87077; 87176; 87186; 87205; 99213 ==

== ENCOUNTER → 2023-08-08 13:23 | Outpatient (BNVA) | payer MEDICARE, MEDICAID, SELFPAY | PROVIDERS: PCP Nurse Practitioner Family; Visit Provider Podiatrist Foot & Ankle Surgery | DX: L08.9 Local infection of the skin and subcutaneous tissue, unspecified (principal); E11.40 Type 2 diabetes mellitus with diabetic neuropathy, unspecified; M86.8X7 Other osteomyelitis, ankle and foot | CPT/HCPCS: 99204 ==

== ENCOUNTER → 2023-08-13 09:10 | Outpatient (BNVA) | payer MEDICARE, MEDICAID, SELFPAY | PROVIDERS: PCP Nurse Practitioner Family; Visit Provider Nurse Practitioner Family | DX: E11.621 Type 2 diabetes mellitus with foot ulcer (principal); E11.52 Type 2 diabetes mellitus with diabetic peripheral angiopathy with gangrene; L97.522 Non-pressure chronic ulcer of other part of left foot with fat layer exposed; L97.512 Non-pressure chronic ulcer of other part of right foot with fat layer exposed | CPT/HCPCS: 11042 ==

== ENCOUNTER 2023-08-14 08:23 | Day surgery (SDC) | payer MEDICARE, MEDICAID, SELFPAY ==
[2023-08-14] VITALS (8 sets, daily range): BP systolic 115–154; BP diastolic 60–80; PULSE 43–51; RESP 9–17; TEMP 36.1–36.3; O2SAT 96–100; BMI 30.2
[2023-08-14] MEDS: acetaminophen 1,000 MG/100 ML PIGGYBACK 400 MG IV (08:50)
[2023-08-14] MEDS: gabapentin 300 mg Capsule PO (08:50)
[2023-08-14] MEDS: sodium chloride 0.9% 1,000 ML 30 ML IV (08:50)
[2023-08-14 08:57] LABS: Glucose Point of Care 74 mg/dL (70-110)
[2023-08-14 09:25] LABS: Anion Gap 10.6 (5-19); Blood Urea Nitrogen 12 mg/dL (8-23); Calcium 9.7 mg/dL (8.5-10.5); Carbon Dioxide 31 mmol/L (22-29); Chloride 106 mmol/L (98-107); Glomerular Filtration Rate 136.5 mL/min (90-130); Glucose 79 mg/dL (65-115); Osmolality Calculated 295 mOsm/kg (285-295); Potassium 4.6 mmol/L (3.5-5.1); Sodium 143 mmol/L (136-145)
--- NOTE | 2023-08-14 09:26 | P.ANESASSM_ITS ---
Pre-Anesthetic Assessment Height/Weight: Height 1.73 m Weight 90.265 kg Temp Pulse Resp BP Pulse Ox O2 Del Method 97.0 F L 51 L 17 154/77 100 Room Air 08/14/23 08:42 08/14/23 08:42 08/14/23 08:42 08/14/23 08:42 08/14/23 08:42 08/14/23 08:43 Preop Diagnosis: Right hallux osteomyelitis Operation Date: 08/14/23 10:05 Proposed Procedures p ?Right hallux amputation 19468,M86.10(Right) - ANA LAURA AnneM Was Beta Rudy taken within 24 hours: Yes Was Clonidine taken within 24 hours: Yes Last intake: Intake Last Liquid Date 08/13/23 Last Liquid Time 22:00 Last Solid Date 08/13/23 Last Solid Time 18:00 Social No alcohol and No tobacco Exam alert and oriented x 3 Airway Mallampati: Class III History/ROS No significant history except as noted and No significant complaints Pulmonary Asthma CV/HEM Congestive Heart Failure and Hypertension Metabolic Diabetes Mellitus Neuropsych Anxiety and Depression Mild cognitive dysfunction Anesthetic Plan ASA status: 3 Anesthesia: General Risk of > 500 ml blood loss (7ml/kg in children): No Medications/Allergies Home Medications Medication Instructions Recorded Confirmed Last Taken Type aspirin 81 mg tablet,delayed 81 mg PO QDAY 08/31/19 08/13/23 08/13/23 History release (Adult Low Dose Aspirin) loratadine 10 mg tablet (Allergy 10 mg PO QDAY 08/31/19 08/13/23 08/13/23 History Relief (loratadine)) nystatin 100,000 unit/gram topical 1 applic topical BID PRN yeast 05/25/21 08/13/23 Unknown Rx cream derm 30 days #30 grams menthol 2.5 % topical gel (Icy Hot 1 applic topical BEDTIME PRN pain 05/25/22 08/13/23 Unknown Rx Pain Relieving) #70.8 grams diabetic shoes #2 ea 06/06/22 08/08/23 Unknown Rx diabetic shoes #2 ea 08/08/22 08/08/23 Unknown Rx insulin lispro 100 unit/mL See Rx Instructions SUBCUT TID #15 08/08/22 08/13/23 Unknown Rx subcutaneous pen (Humalog KwikPen mL (U-100) Insulin) Diabetic Shoes with 3 Pairs of #1 ea 02/23/23 01/04/24 Unknown Rx Inserts mupirocin 2 % topical ointment 1 applic topical BID #15 grams 09/27/22 08/13/23 Unknown Rx Hinged knee brace #1 ea 10/22/22 08/08/23 Unknown Rx nitroglycerin 0.4 mg sublingual See Rx Instructions .Route 11/13/22 08/13/23 Unknown Rx tablet .COMPLEX #25 tabs menthol 2.5 % topical gel (BenGay 1 applic topical QID PRN knee pain 12/13/22 08/13/23 Unknown Rx Vanishing Scent) #57 grams lorazepam 2 mg tablet (Ativan) 2 mg PO TID PRN severe agitation 01/15/23 08/13/23 Unknown Rx #90 tabs pen needle, diabetic 31 gauge x #100 ea 01/31/23 08/08/23 Unknown Rx 3/16 (BD Ultra-Fine Mini Pen Needle) haloperidol 5 mg tablet 5 mg PO TID PRN severe acute 02/22/23 08/13/23 Unknown Rx agitation #90 tabs potassium chloride 10 mEq See Rx Instructions .Route 03/18/23 08/13/23 08/12/23 Rx capsule,extended release .COMPLEX #90 caps aripiprazole 15 mg tablet (Abilify) 15 mg PO BEDTIME #30 tabs 05/24/23 08/13/23 08/13/23 Rx citalopram 20 mg tablet (Celexa) 20 mg PO .morning #30 tabs 05/24/23 08/13/23 08/13/23 Rx clonidine HCl 0.1 mg tablet 0.1 mg PO BEDTIME #30 tabs 05/24/23 08/13/23 08/13/23 Rx gabapentin 300 mg capsule 300 mg PO DIRECTED #120 caps 05/24/23 08/13/23 08/13/23 Rx cholecalciferol (vitamin D3) 1,250 50,000 unit PO .weekly #12 caps 05/30/23 08/13/23 08/09/23 Rx mcg (50,000 unit) capsule levofloxacin 500 mg tablet 500 mg PO DAILY #10 tabs 08/06/23 08/13/23 08/13/23 Rx albuterol sulfate 90 mcg/actuation 2 inh inhalation TID PRN sob 08/13/23 08/13/23 Unknown History aerosol inhaler (Ventolin HFA) atenolol 50 mg tablet 50 mg PO DAILY 08/13/23 08/13/23 08/13/23 History atorvastatin 40 mg tablet 40 mg PO DAILY 08/13/23 08/13/23 08/13/23 History budesonide-formoterol HFA 80 2 puff inhalation BID 08/13/23 08/13/23 08/13/23 History mcg-4.5 mcg/actuation aerosol inhaler docusate sodium 100 mg capsule 100 mg PO BID 08/13/23 08/13/23 08/13/23 History furosemide 20 mg tablet 20 mg PO EVERY OTHER DAY 08/13/23 08/13/23 08/12/23 History isosorbide mononitrate 30 mg 30 mg PO DAILY 08/13/23 08/13/23 08/13/23 History tablet,extended release 24 hr meloxicam 15 mg tablet 15 mg PO DAILY 08/13/23 08/13/23 08/13/23 History terazosin 1 mg capsule 1 mg PO DAILY 08/13/23 08/13/23 08/13/23 History tizanidine 4 mg tablet 4 mg PO TID PRN Pain 08/13/23 08/13/23 08/13/23 History Allergies Allergy/AdvReac Type Severity Reaction Status Date / Time NSAIDS (Non-Steroidal Allergy Intermediate unknown Verified 08/13/23 10:29 Anti-Inflamma Current Medications Generic Name Dose Route Start Last Admin Trade Name Freq PRN Reason Stop Dose Admin Sodium Chloride 1,000 mls @ 30 mls/hr 08/14/23 08:30 08/14/23 08:50 Sodium Chloride 0.9% IV 08/15/23 08:29 30 mls/hr .Q24H NAILA Administration PFSH Anesthesia Medical History Colon cancer screening Encounter for general adult medical examination without abnormal findings Violent behavior Mixed hyperlipidemia Psychiatric care Prostate cancer screening Excess skin of abdomen Yeast dermatitis Encounter for medication review Chronic knee pain Falls Hypokalemia Tuberculin skin test encounter Vitamin D deficiency Hypertension screen Atypical chest pain Congestive heart failure Diabetes Osteoarthritis Hypertension Sleep apnea Mild intellectual disabilities Chronic post-traumatic stress disorder Mild early onset dysthymic disorder, in full remission, with anxious distress, with intermittent major depressive episodes, without current episode Family History Other Family history unknown Social History Smoking and tobacco/nicotine status: never used tobacco/nicotine Alcohol intake: never Substance/Drug Use: never Caregiver/support person: Yes Lives independently: No Housing: [facility] Data Anesthesia 08/14/23 08:56 BMP 08/14/23 08:56 Sodium 143 Potassium 4.6 Chloride 106 BUN 12 Glucose 79 Calcium 9.7 Cardiac Studies: 2 Echocardiogram Ultrasound 06/10/20
--- NOTE | 2023-08-14 10:24 | W.PM.OPSUD ---
Surgery/Procedure H&P Update DATE OF PROCEDURE: August 14, 2023 DATE H&P PERFORMED: 08/08/23 H&P UPDATE INFORMATION: I have reviewed H&P completed within last 30 days, I have examined patient prior to procedure, No changes to prior documentation and H&P is in [facility] [place] on date indicated PREOP DIAGNOSIS: Right hallux osteomyelitis PLANNED PROCEDURE: Operation Date: 08/14/23 10:05 Proposed Procedures p ?Right hallux amputation 17095,M86.10(Right) - Luca Ronquillo DPM
[2023-08-14] MEDS: ceFAZolin 2,000 MG in sodium chloride 0.9% (plus) 50 ML 100 MG IV (10:39)
[2023-08-14] MEDS: BUPivacaine 0.5% INJ 30 mL INJECTION (11:08)
--- NOTE | 2023-08-14 11:21 | W.PM.BPON ---
Date of procedure: 08/14/2023 Surgeon name: Dr. Luca Ronquillo D.P.M. Furniture Finisher Helper(s) name(s): Petra Procedure(s) performed: Right hallux amputation Description of findings: Remaining tissue was healthy and viable Estimated blood loss: 10 cc Tourniquet time: 13 minutes Specimen(s) removed: Right hallux sent to pathology as surgical specimen, cultures aerobic and anaerobic sent to micro for ID and sensitivity Post-operative diagnosis: Osteomyelitis right hallux
--- NOTE | 2023-08-14 11:23 | P.OP_ITS ---
Operative Report Date of procedure: August 14, 2023 Pre-op diagnosis: Osteomyelitis Post-op diagnosis: same Procedure done: 1. Right hallux amputation CPT 00918 Surgeon: Luca Ronquillo DPM Estimated blood loss: 10cc 13 minutes Complications: none Procedure: Patient is a 63-year-old male that has a history of right hallux osteomyelitis. The patient has had the aforementioned chief complaint for some time. Conservative treatment measures have been attempted and the patient has opted for surgical intervention at this time. A lengthy discussion regarding the pro cedure, including risks and complications has been had with the patient and is noted in the recent clinic note. Written and verbal consent have been obtained. All patient questions have been answered to the patient?s satisfaction. No written or verbal guarantees have been given or implied. The patient has been NPO since midnight. The history has been reviewed and the history and physical is current. The signed consent was confirmed and placed in the patient chart. Patient imaging has been reviewed and is consistent with the diagnosis. Under mild sedation, the patient was brought into the operating room and placed on the table in the supine position. IV antibiotics were given by the anesthesia team as preoperative surgical prophylaxis. IV sedation was then performed by the anesthesiateam. A pneumatic tourniquet was then placed about the right ankle. The operative extremity was then prepped and draped in the usual fashion. The extremity was then elevated and exsanguinated before the t ourniquet was inflated to 250 mmHg. After inflation, the following procedure was then performed. Attention was directed to the right hallux where a racquet style incision was made circumferentially about the hallux with care to preserve as much soft tissue as possible. Dissection was carried full-thickness down to level of bone. Dissection was carried out to the level of the first metatarsophalangeal joint. The collateral ligaments and attachments of the first metatarsal phalangeal joint capsule were excised. A penetrating towel clamp was then used to grasp the end of the hallux to joystick the hallux for amputation. All connections of the first metatarsophalangeal joint were released using a #15 blade. The hallux was then passed from the operative field be sent as specimen. The remaining tissues appeared healthy and viable in nature. The metatarsal head appeared healthy without any degenerative changes. The flexor and extensor tendons were then grasped and pulled distally before being incised as proximally as possible using a #15 blade. All remaining tissue appeared healthy. The site was then irrigated with copious amounts of sterile saline via cystoscopy tubing. The amputation site was then closed using 3-0 Prolene in simple interrupted, horizontal mattress and retention type fashion. The tourniquet was let down and good hyperemic response was noted to all remaining digits of the operative extremity. The incision site was then dressed with Xeroform, 4 x 4 gauze, Kerlix, Coban. The patient tolerated the procedure and anesthesia well and without complication . The patient was transported from the operating room to the recovery room with vital signs stable and vascular status intact to all remaining digits of the right foot. The patient was given both written and verbal instructions to remain minimally weightbearing in postop shoe to the operative extremity, to keep dressings/splint clean, dry and intact and to take pain medication as directed. The patient will follow-up in the outpatient setting at their scheduled appointment. The patient was discharged with my personal number and was instructed to call if any questions or issues should arise. They were discharged home once anesthesia criteria was met.
--- NOTE | 2023-08-14 19:31 | ANE.PACU2 ---
Inpatient post-anesthesia follow up: Airway intact: Yes Vital signs: Temperature 97.3 F Pulse Rate 44 Respiratory Rate 16 Blood Pressure 127/80 Pulse Oximetry 97 Oxygen Delivery Me thod Room Air Oxygen Flow Rate Fraction of Inspir ed Oxygen Hydration adequate: Yes Nausea and vomiting: No Pain level: 2 Mental status: Baseline
== END 2023-08-14 12:15 | disposition home or self-care (01) ==
PROVIDERS: PCP Nurse Practitioner Family; Visit Provider Podiatrist Foot & Ankle Surgery
PROC: (CPT 28820; principal; 2023-08-14 10:05)
DX: M86.8X7 Other osteomyelitis, ankle and foot (principal); I11.0 Hypertensive heart disease with heart failure; I50.9 Heart failure, unspecified; E11.9 Type 2 diabetes mellitus without complications; J45.909 Unspecified asthma, uncomplicated; Z79.82 Long term (current) use of aspirin
CPT/HCPCS: 28820; 36415; 36416; 80048; 82962; 87070; 87075; 87205; 88305; 88311; J0131; J0690; J2704; J3010; J3490; J7030; L3260

== ENCOUNTER → 2023-08-15 11:52 | Outpatient (BNVA) | payer MEDICARE, MEDICAID, SELFPAY | PROVIDERS: PCP Nurse Practitioner Family; Visit Provider Podiatrist Foot & Ankle Surgery | DX: M86.8X7 Other osteomyelitis, ankle and foot; L08.9 Local infection of the skin and subcutaneous tissue, unspecified; E11.40 Type 2 diabetes mellitus with diabetic neuropathy, unspecified; Z79.4 Long term (current) use of insulin | CPT/HCPCS: 36415; 85025; 99024; 99213; A6219 ==

== ENCOUNTER → 2023-08-20 09:24 | Outpatient (BNVA) | payer MEDICARE, MEDICAID, SELFPAY | PROVIDERS: PCP Nurse Practitioner Family; Visit Provider Nurse Practitioner Family | DX: E11.621 Type 2 diabetes mellitus with foot ulcer (principal); L97.422 Non-pressure chronic ulcer of left heel and midfoot with fat layer exposed | CPT/HCPCS: 11042 ==

== ENCOUNTER → 2023-08-21 14:18 | Outpatient (BNVA) | payer MEDICARE, MEDICAID, SELFPAY | PROVIDERS: PCP Nurse Practitioner Family; Visit Provider Podiatrist Foot & Ankle Surgery | DX: L08.9 Local infection of the skin and subcutaneous tissue, unspecified (principal); E11.40 Type 2 diabetes mellitus with diabetic neuropathy, unspecified; M86.8X7 Other osteomyelitis, ankle and foot; Z79.4 Long term (current) use of insulin; Z89.411 Acquired absence of right great toe | CPT/HCPCS: 99213 ==

== ENCOUNTER → 2023-08-28 14:11 | Outpatient (BNVA) | payer MEDICARE, MEDICAID, SELFPAY | PROVIDERS: PCP Nurse Practitioner Family; Visit Provider Podiatrist Foot & Ankle Surgery | DX: Z98.890 Other specified postprocedural states (principal); L08.9 Local infection of the skin and subcutaneous tissue, unspecified; E11.40 Type 2 diabetes mellitus with diabetic neuropathy, unspecified; M86.8X7 Other osteomyelitis, ankle and foot; Z79.4 Long term (current) use of insulin | CPT/HCPCS: 99213 ==

== ENCOUNTER → 2023-09-03 10:54 | Outpatient (BNVA) | payer MEDICARE, MEDICAID, SELFPAY | PROVIDERS: PCP Nurse Practitioner Family; Visit Provider Nurse Practitioner Family | DX: E11.52 Type 2 diabetes mellitus with diabetic peripheral angiopathy with gangrene (principal); E11.621 Type 2 diabetes mellitus with foot ulcer; L97.522 Non-pressure chronic ulcer of other part of left foot with fat layer exposed; T87.81 Dehiscence of amputation stump; Y83.8 Other surgical procedures as the cause of abnormal reaction of the patient, or of later complication, without mention of misadventure at the time of the procedure; Z89.421 Acquired absence of other right toe(s) | CPT/HCPCS: 11042 ==

== ENCOUNTER → 2023-09-05 11:30 | Outpatient (BNVA) | payer MEDICARE, MEDICAID, SELFPAY | PROVIDERS: PCP Nurse Practitioner Family; Visit Provider Nurse Practitioner Family | DX: E11.52 Type 2 diabetes mellitus with diabetic peripheral angiopathy with gangrene (principal); E11.621 Type 2 diabetes mellitus with foot ulcer; L97.522 Non-pressure chronic ulcer of other part of left foot with fat layer exposed; T87.81 Dehiscence of amputation stump; Y83.8 Other surgical procedures as the cause of abnormal reaction of the patient, or of later complication, without mention of misadventure at the time of the procedure; Z89.421 Acquired absence of other right toe(s) | CPT/HCPCS: 11042; 29445 ==

== ENCOUNTER → 2023-09-09 10:19 | Outpatient (BNVA) | payer MEDICARE, MEDICAID, SELFPAY | PROVIDERS: PCP Nurse Practitioner Family; Visit Provider Nurse Practitioner Family | DX: E11.52 Type 2 diabetes mellitus with diabetic peripheral angiopathy with gangrene (principal); E11.621 Type 2 diabetes mellitus with foot ulcer; L97.522 Non-pressure chronic ulcer of other part of left foot with fat layer exposed; T87.81 Dehiscence of amputation stump; Y83.8 Other surgical procedures as the cause of abnormal reaction of the patient, or of later complication, without mention of misadventure at the time of the procedure; Z89.421 Acquired absence of other right toe(s) | CPT/HCPCS: 11042; 29445 ==

== ENCOUNTER → 2023-09-17 14:50 | Outpatient (BNVA) | payer MEDICARE, MEDICAID, SELFPAY | PROVIDERS: PCP Nurse Practitioner Family; Visit Provider Thoracic Surgery (Cardiothoracic Vascular Surgery) | DX: E11.52 Type 2 diabetes mellitus with diabetic peripheral angiopathy with gangrene (principal); E11.621 Type 2 diabetes mellitus with foot ulcer; L97.521 Non-pressure chronic ulcer of other part of left foot limited to breakdown of skin; T87.81 Dehiscence of amputation stump; Y83.8 Other surgical procedures as the cause of abnormal reaction of the patient, or of later complication, without mention of misadventure at the time of the procedure; Z89.421 Acquired absence of other right toe(s) | CPT/HCPCS: 97597 ==

== ENCOUNTER → 2023-09-23 13:44 | Outpatient (BNVA) | payer MEDICARE, MEDICAID, SELFPAY | PROVIDERS: PCP Nurse Practitioner Family; Visit Provider Nurse Practitioner Family | DX: E11.52 Type 2 diabetes mellitus with diabetic peripheral angiopathy with gangrene (principal); E11.621 Type 2 diabetes mellitus with foot ulcer; L97.522 Non-pressure chronic ulcer of other part of left foot with fat layer exposed; T87.81 Dehiscence of amputation stump; Y83.8 Other surgical procedures as the cause of abnormal reaction of the patient, or of later complication, without mention of misadventure at the time of the procedure; Z89.421 Acquired absence of other right toe(s) | CPT/HCPCS: 11042; A6212 ==

== ENCOUNTER → 2023-09-30 14:42 | Outpatient (BNVA) | payer MEDICARE, MEDICAID, SELFPAY | PROVIDERS: PCP Nurse Practitioner Family; Visit Provider Nurse Practitioner Family | DX: E11.52 Type 2 diabetes mellitus with diabetic peripheral angiopathy with gangrene (principal); E11.621 Type 2 diabetes mellitus with foot ulcer; L97.521 Non-pressure chronic ulcer of other part of left foot limited to breakdown of skin; T87.81 Dehiscence of amputation stump; Y83.8 Other surgical procedures as the cause of abnormal reaction of the patient, or of later complication, without mention of misadventure at the time of the procedure; Z89.421 Acquired absence of other right toe(s) | CPT/HCPCS: 11042; 99212; A6212 ==

== ENCOUNTER → 2023-10-01 08:08 | Outpatient (BNVA) | payer MEDICARE, MEDICAID, SELFPAY | PROVIDERS: PCP Nurse Practitioner Family; Visit Provider Nurse Practitioner Family | DX: E11.621 Type 2 diabetes mellitus with foot ulcer (principal); L97.509 Non-pressure chronic ulcer of other part of unspecified foot with unspecified severity; M20.42 Other hammer toe(s) (acquired), left foot; M19.072 Primary osteoarthritis, left ankle and foot; M77.32 Calcaneal spur, left foot | CPT/HCPCS: 73630 ==

== ENCOUNTER → 2023-10-07 14:41 | Outpatient (BNVA) | payer MEDICARE, MEDICAID, SELFPAY | PROVIDERS: PCP Nurse Practitioner Family; Visit Provider Nurse Practitioner Family | DX: E11.52 Type 2 diabetes mellitus with diabetic peripheral angiopathy with gangrene (principal); E11.621 Type 2 diabetes mellitus with foot ulcer; L97.522 Non-pressure chronic ulcer of other part of left foot with fat layer exposed | CPT/HCPCS: 11042 ==

== ENCOUNTER → 2023-10-14 15:14 | Outpatient (BNVA) | payer MEDICARE, MEDICAID, SELFPAY | PROVIDERS: PCP Nurse Practitioner Family; Visit Provider Nurse Practitioner Family | DX: E11.52 Type 2 diabetes mellitus with diabetic peripheral angiopathy with gangrene (principal); E11.621 Type 2 diabetes mellitus with foot ulcer; L97.521 Non-pressure chronic ulcer of other part of left foot limited to breakdown of skin | CPT/HCPCS: 11042; 97597; A6252 ==

== ENCOUNTER 2023-10-17 22:35 | Emergency (ER) | payer MEDICARE, MEDICAID, SELFPAY ==
[2023-10-17 22:36] VITALS: BP 171/82; PULSE 59; RESP 20; TEMP 36.8; O2SAT 96; BMI 21.2
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
[2023-10-17 23:40] LABS: Basophils % 0.4 %; Eosinophils % 0.8 %; Lymphocytes % 19.9 %; Mean Corpuscular HGB Conc 34.3 g/dL (30-55); Mean Corpuscular Hemoglobin 31.3 pg (27-33); Mean Corpuscular Volume 91.3 fl (82-101); Mean Platelet Volume 10.7 fL (7.4-10.4); Monocytes # 0.3 10^3/uL (0.2-0.9); Monocytes % 6.3 %; Neutrophils # 3.46 10^3/uL (1.8-7.7); Neutrophils % 72.4 %; Nucleated Red Blood Cells % 0 %; Platelet Count 125 10^3/cmm (157-399); Red Blood Count 4.38 10^6/uL (3.85-5.65); Red Cell Distribution Width 13.6 % (12.1-15.1); White Blood Count 4.78 10^3/uL (3.29-11.43)
[2023-10-17 23:40] LABS: Add Urine Microscopic? NO; Charge for UA Resulting for Rev
[2023-10-17 23:43] LABS: Bilirubin Urine Neg (Negative); Blood Urine Neg (Negative); Glucose Urine UA Norm (Normal); Ketones Urine Negative (Negative); Leukocyte Esterase Urine Negative (Negative); Nitrate Urine Negative (Negative); Protein Urine Neg (Negative); Urine Appearance Clear (CLEAR); Urine Color Straw (Yellow); Urobilinogen Urine Norm (Negative); pH Urine 7 (5-7)
[2023-10-17 23:51] LABS: Amphetamines Screen Urine Negative (Negative); Barbiturates Screen Urine Negative (Negative); Benzodiazepines Screen Urine Negative (Negative); Cocaine Screen Urine Negative (Negative); Opiate Screen Urine Negative (Negative); PCP Screen Urine Negative (Negative); THC Screen Urine Negative (Negative)
[2023-10-18 00:17] LABS: Alanine Aminotransferase 19 U/L (0-41); Albumin Level 4.1 g/dL (3.5-5.2); Alkaline Phosphatase 64 U/L (40-130); Anion Gap 13.3 (5-19); Aspartate Amino Transferase 29 U/L (0-40); Blood Urea Nitrogen 20 mg/dL (8-23); Calcium 9.1 mg/dL (8.5-10.5); Carbon Dioxide 30 mmol/L (22-29); Chloride 104 mmol/L (98-107); Creatinine Clr Calc Pharmacy 102.8257; Globulin 2.5 g/dL (1.3-4.6); Glomerular Filtration Rate 114.3 mL/min (90-130); Glucose 85 mg/dL (65-115); Osmolality Calculated 298 mOsm/kg (285-295); Potassium 4.3 mmol/L (3.5-5.1); Sodium 143 mmol/L (136-145); Thyroid Stimulating Hormone 4.05 uIU/mL (0.27-4.20); Total Bilirubin 0.7 mg/dL (0.15-1.2); Total Protein 6.6 g/dL (6.6-8.7)
[2023-10-18 00:18] VITALS: BP 133/76; PULSE 61; RESP 22; O2SAT 98
[2023-10-18 00:22] LABS: Acetaminophen < 5.0 ug/mL (10-30); Alcohol Level < 10 mg/dL (0-10); Salicylate < 0.3 mg/dL (3-10)
--- NOTE | 2023-10-18 00:40 | PC.NURSE ---
Spoke with zakia gunter admin applications system analyst. Informed her that patient was being discharged from ED and needing to return to their facility. Admin informed me they would not be available to provide transport until late morning/afternoon. Attempting to find alternative transport.
[2023-10-18 01:40] VITALS: BP 153/88; PULSE 68; RESP 20; O2SAT 99
== END 2023-10-18 01:41 | disposition home or self-care (01) ==
PROVIDERS: Emergency Provider Nurse Practitioner Family; PCP Nurse Practitioner Family
DX: R45.6 Violent behavior (principal); F34.1 Dysthymic disorder; F41.8 Other specified anxiety disorders; F43.12 Post-traumatic stress disorder, chronic; F70 Mild intellectual disabilities; Z79.82 Long term (current) use of aspirin; Z79.4 Long term (current) use of insulin; E78.2 Mixed hyperlipidemia; I11.0 Hypertensive heart disease with heart failure; I50.9 Heart failure, unspecified
CPT/HCPCS: 36415; 80053; 80306; 80307; 81003; 84443; 85025; 99283

== ENCOUNTER → 2023-10-21 13:55 | Outpatient (BNVA) | payer MEDICARE, MEDICAID, SELFPAY | PROVIDERS: PCP Nurse Practitioner Family; Visit Provider Nurse Practitioner Family | DX: E11.52 Type 2 diabetes mellitus with diabetic peripheral angiopathy with gangrene (principal); E11.621 Type 2 diabetes mellitus with foot ulcer; L97.522 Non-pressure chronic ulcer of other part of left foot with fat layer exposed; L97.511 Non-pressure chronic ulcer of other part of right foot limited to breakdown of skin | CPT/HCPCS: 11042; A6197 ==

== ENCOUNTER → 2023-10-30 10:08 | Outpatient (BNVA) | payer MEDICARE, MEDICAID, SELFPAY | PROVIDERS: PCP Nurse Practitioner Family; Visit Provider Thoracic Surgery (Cardiothoracic Vascular Surgery) | DX: E11.52 Type 2 diabetes mellitus with diabetic peripheral angiopathy with gangrene (principal); E11.621 Type 2 diabetes mellitus with foot ulcer; L97.511 Non-pressure chronic ulcer of other part of right foot limited to breakdown of skin; L97.521 Non-pressure chronic ulcer of other part of left foot limited to breakdown of skin; Z09 Encounter for follow-up examination after completed treatment for conditions other than malignant neoplasm | CPT/HCPCS: 97597; A6197 ==